=== PATIENT | female | born 1995 | race Native Hawaiian/Other Pacific Islander ===

== ENCOUNTER 2022-04-13 16:58 | Emergency (ER) | payer OTHER ==
[~2022-04-13] VITALS: Ht 149.9 cm; Wt 92.3 kg
[2022-04-13 18:57] VITALS: BP 120/81; PULSE 76; TEMP 98.5
== END 2022-04-13 18:57 | disposition home or self-care (01) ==
LOC: COL.ER 16:58
DX: S93.402A Sprain of unspecified ligament of left ankle, initial encounter (principal); S80.212A Abrasion, left knee, initial encounter; W10.9XXA Fall (on) (from) unspecified stairs and steps, initial encounter; X50.1XXA Overexertion from prolonged static or awkward postures, initial encounter